=== PATIENT | male | born 1945 | race Caucasian/White ===

== ENCOUNTER 2021-06-13 08:23 | Emergency (ER) | payer MEDICARE, MEDICAID, SELFPAY ==
[2021-06-13 08:25] VITALS: BP 141/71; PULSE 64; RESP 22; TEMP 36.8; O2SAT 98
[2021-06-13 08:30] VITALS: PULSE 66
--- NOTE | 2021-06-13 08:35 | ED.WEAKNESS ---
HPI - Weakness General Chief complaint: Weakness Stated complaint: Ambulance Source: patient, EMS and RN notes reviewed Mode of arrival: EMS Limitations: no limitations History of Present Illness Complaint: generalized weakness Onset (ago): day(s) (2-3) Duration: constant Location: generalized Migration: none Severity: moderate Relieving factors: none Exacerbating factors: movement Associated symptoms: denies other symptoms Related Data Home Medications Medication Instructions Recorded Confirmed amlodipine 5 mg PO DAILY 06/13/21 06/13/21 aspirin 81 mg PO DAILY 06/13/21 06/13/21 docusate sodium 100 mg PO DAILY 06/13/21 06/13/21 furosemide 40 mg PO DAILY 06/13/21 06/13/21 gabapentin 600 mg PO TID 06/13/21 06/13/21 levothyroxine 50 mcg PO DAILY 06/13/21 06/13/21 lithium carbonate 300 mg PO BID 06/13/21 06/13/21 lorazepam 0.25 mg PO HS 06/13/21 06/13/21 metoprolol tartrate 25 mg PO DAILY 06/13/21 06/13/21 multivitamin [Daily Multivitamin] 1 tablet PO DAILY 06/13/21 06/13/21 nitroglycerin 0.4 mg SUBLINGUAL Q5-15M PRN 06/13/21 06/13/21 paliperidone palmitate [Invega 156 mg IM Q30D 06/13/21 06/13/21 Sustenna] polyethylene glycol 3350 17 g PO DAILY 06/13/21 06/13/21 tamsulosin 0.8 mg PO HS 06/13/21 06/13/21 Allergies Allergy/AdvReac Type Severity Reaction Status Date / Time No Known Allergies Allergy Verified 06/13/21 08:49 Review of Systems Review of Systems: All systems reviewed & are unremarkable except as noted in HPI and below Constitutional: Constitutional: Denies chills and Denies fever(s) Cardiovascular: Cardiovascular: Denies chest pain Respiratory: Respiratory: Denies dyspnea Gastrointestinal: Gastrointestinal: Denies diarrhea, Denies nausea and Denies vomiting Genitourinary: Genitourinary: Denies oliguria, Denies dysuria and Reports urinary frequency PMFSH Past Medical History Medical History (Updated 06/13/21 @ 11:11 by Jb Reyna MD) Bipolar 1 disorder PTSD (post-traumatic stress disorder) Surgical History Surgical History (Updated 06/13/21 @ 08:42 by Jb Reyna MD) Hx of cholecystectomy Social History Social History (Updated 06/13/21 @ 08:43 by Jb Reyna MD) Smoking status: Former smoker Tobacco type: cigarettes Additional smoking assessment comments: smoked times 40 years Alcohol intake: former Substance use: never Exam Const: General: healthy appearing and no acute distress Nutritional Appearance: well nourished and thin Orientation/consciousness: patient oriented x3 HENMT: Head: normal to inspection Ears: external ears normal Face and sinus: normal facial exam Mouth: Yes moist mucous membranes Eyes: Conjunctivae: conjunctivae normal Pupils: Equal, round and reactive pupils present EOM: EOMs intact bilaterally Neck: Neck: normal visual inspection Resp: Effort & Inspection: normal respiratory effort Auscultation: clear to auscultation bilaterally Cardio: Rate: regular rate Rhythm: regular rhythm GI: GI Palp: Yes Soft to palpation and No Tenderness to palpation present (GI) Auscultation: normal bowel sounds Back/Spine/Pelvis: Cervical Spine: cervical ROM normal Thoracic/Lumbar Spine: thoraco-lumbar ROM normal Skin: General skin exam: normal color Rashes: no rashes Neuro: General: patient oriented x3, moves all extremities, no meningeal signs and no focal motor deficits Speech: normal speech Extrem: General: normal to inspection and no clubbing, cyanosis or edema Psych: Appearance: grossly normal and well kempt Mental Status: mental status grossly normal Affect: Blunted affect present Attitude: cooperative Thought content: Yes Normal thought content present Course Vital Signs Vital signs: Vital Signs Temperature 36.8 C 06/13/21 08:25 Pulse Rate 64 06/13/21 08:25 Respiratory Rate 22 H 06/13/21 08:25 Blood Pressure 141/71 H 06/13/21 08:25 Pulse Oximetry 98 06/13/21 08:25 Temperature 36.8 C 05/21
[2021-06-13 08:56] LABS: Basophils Absolute Auto 0.07 K/mm3 (0.00-0.10); Eosinophils Absolute Auto 0.16 K/mm3 (0.02-0.50); Eosinophils Percent Auto 2.3 % (1.0-6.0); Hematocrit 40.1 % (37.0-46.0); Hemoglobin 13.3 g/dL (12.4-15.3); Immature Granulocyte Absolute 0.03 K/mm3 (0.00-0.00); Immature Granulocyte Percent A 0.4 % (0.0-0.0); Lymphocytes Absolute Auto 1.86 K/mm3 (1.10-4.50); Lymphocytes Percent Auto 26.4 % (18.0-42.0); Mean Corpuscular HGB Conc 33.2 g/dL (32.0-36.0); Mean Corpuscular Hemoglobin 30.8 pg (27.0-31.0); Mean Corpuscular Volume 92.8 fL (78.0-102.0); Mean Platelet Volume 11.4 fl (8.7-11.0); Monocytes Absolute Auto 0.82 K/mm3 (0.10-0.90); Monocytes Percent Auto 11.6 % (2.0-11.0); Neutrophils Absolute Auto 4.1 K/mm3 (1.7-7.2); Neutrophils Percent Auto 58.3 % (50.0-70.0); Platelet Count Result 178 K/mm3 (150-420); Red Blood Count 4.32 M/mm3 (4.70-6.10); Red Cell Distribution Width 12.4 % (11.6-14.4); White Blood Count 7.1 K/mm3 (4.8-10.8)
[2021-06-13 09:14] LABS: Alanine Aminotransferase 33 U/L (16-63); Alkaline Phosphatase 119 U/L (46-116); Anion Gap 9 mmol/L (8-16); Aspartate Amino Transferase 16 U/L (15-37); Bilirubin,Total 0.7 mg/dL (0.00-1.00); Blood Urea Nitrogen 19 mg/dL (7-18); CRP 0.6 mg/dL (0.0-0.9); Carbon Dioxide 29 mmol/L (21-32); Chloride 103 mmol/L (98-108); Estimated CRCL calculation 49 ml/min; Estimated Glomerular Filt Rate 49; Glucose 297 mg/dL (70-99); Osmolality Calculated 305 mOsm/kg (285-295); Potassium 3.8 mmol/L (3.5-5.1); Sodium 141 mmol/L (136-145); Total Protein 7.3 g/dL (6.4-8.2)
[2021-06-13] MEDS: INSULIN HUMAN REGULAR (*BKC) 100 UNITS/ML 15 UNITS SUB-Q (09:29)
[2021-06-13 09:48] LABS: Hemoglobin A1C 7.8 % (<5.7)
[2021-06-13 09:50] LABS: Magnesium 2.2 mg/dL (1.8-2.4)
[2021-06-13 10:18] LABS: Add Urine Microscopic? NO; Appearance Urine Clear (Clear); Bilirubin Urine Negative (Negative); Blood Urine Negative (Negative); Color Urine Light Yellow (Yellow); Glucose Urine UA Negative (Negative); Ketones Urine Negative (Negative); Leukocyte Esterase Ur Negative LEU/UL (Negative); Nitrate Urine Negative (Negative); Protein Urine Negative (Negative); pH Urine 7.5 (5.0-8.0)
[2021-06-13 10:22] LABS: Glucose Point of Care 340 mg/dl (65-105)
[2021-06-13 11:07] LABS: Glucose Point of Care 256 mg/dl (65-105)
[2021-06-13 11:54] VITALS: BP 138/70; PULSE 74; RESP 20; O2SAT 96
== END 2021-06-13 11:55 | disposition home or self-care (01) ==
PROVIDERS: Emergency Provider Emergency Medicine
DX: E11.9 Type 2 diabetes mellitus without complications (principal); Z87.891 Personal history of nicotine dependence
CPT/HCPCS: 36415; 80053; 81003; 82948; 83036; 83735; 85025; 86140; 99283; J1815

== ENCOUNTER 2021-06-30 10:35 | Outpatient (CLI) | payer MEDICARE, SELFPAY ==
[2021-07-03 05:11] LABS: Lithium 0.99 mmol/L (0.60-1.20)
== END 2021-06-30 10:36 | disposition home or self-care (01) ==
LOC: CHSLAB 10:49
DX: Z79.899 Other long term (current) drug therapy (principal)
CPT/HCPCS: 36415; 80178

== ENCOUNTER 2022-06-09 09:13 | Emergency (ER) | payer MEDICARE, SELFPAY ==
--- NOTE | ~2022-06-09 | CT_ITS ---
EXAMINATION: CT pelvis wo con DATE: 06/09/2022 10:13 INDICATION: Lateral right hip pain. No trauma. TECHNIQUE: Computed tomography (CT) of the pelvis was performed without intravenous contrast. Automat ed exposure control and iterative reconstruction technique were employed. Exam dose: 286.48 mGy-cm t otal exam DLP. COMPARISON: None FINDINGS: Prominent anterior spurring at L3-4 but relatively preserved L3-4 and L4-5 disc spaces. Mod erately severe degenerative disc disease at L5-S1. Degenerative change at the apophyseal joints in th e lower lumbar and lumbosacral area. No pelvic fracture or bone destruction. No fracture or dislocation, avascular necrosis or bone destru ction of either hip is evident. There is mild bilateral hip osteoarthritis. No suspicious osteolytic or osteoblastic lesions. Mild prostate enlargement. The urinary bladder is unremarkable. Mild colonic diverticulosis; no CT ev idence of diverticulitis. Atherosclerotic calcification of the abdominal aorta and iliac arteries and femoral arteries. Small fat-containing right inguinal hernia. IMPRESSION: No right hip fracture, dislocation or avascular necrosis or bone destruction is detected Moderately severe degenerative disc disease at L5-S1 Reviewed, dictated and finalized at [facility]. Reviewed, dictated and finalized at [facility]. IMPRESSION: No right hip fracture, dislocation or avascular necrosis or bone d estruction is detected Moderately severe degenerative disc disease at L5-S1
[2022-06-09 09:20] VITALS: BP 128/64; PULSE 71; RESP 16; TEMP 36.2; O2SAT 99
[2022-06-09] MEDS: ACETAMINOPHEN 325 MG TABLET 650 MG PO (09:58)
--- NOTE | 2022-06-09 10:33 | ED.LOWEXIN ---
HPI - Extremity Injury (Lower) General Chief Complaint: Extremity Injury, Lower Stated Complaint: Right Hip Pain Time Seen by Provider: 06/09/22 09:17 Source: patient and RN notes reviewed Mode of arrival: ambulatory Limitations: no limitations History of Present Illness MD complaint: hip injury (right hip pain x 3 days.) Type of Injury: other (none) Place: home Severity: mild Severity scale (1-10): 3 Relieving factors: nothing Exacerbating factors: nothing Other symptoms: none Treatments prior to arrival: other (none) Related Data Home Medications Medication Instructions Recorded Confirmed amlodipine 10 mg tablet 5 mg PO DAILY 06/13/21 06/09/22 aspirin 81 mg chewable tablet 81 mg PO DAILY 06/13/21 06/09/22 docusate sodium 100 mg capsule 100 mg PO DAILY 06/13/21 06/09/22 furosemide 40 mg tablet 40 mg PO DAILY 06/13/21 06/09/22 gabapentin 300 mg tablet 600 mg PO TID 06/13/21 06/09/22 levothyroxine 50 mcg tablet 50 mcg PO DAILY 06/13/21 06/09/22 lithium carbonate 300 mg capsule 300 mg PO BID 06/13/21 06/09/22 lorazepam 0.5 mg tablet 0.25 mg PO HS 06/13/21 06/09/22 metoprolol tartrate 25 mg tablet 25 mg PO DAILY 06/13/21 06/09/22 multivitamin 1 tablet PO DAILY 06/13/21 06/09/22 tamsulosin 0.4 mg capsule 0.8 mg PO HS 06/13/21 06/09/22 atorvastatin 80 mg tablet 80 mg PO HS 06/09/22 06/09/22 losartan 50 mg tablet 50 mg PO DAILY 06/09/22 06/09/22 paliperidone palmitate 156 mg/mL 156 mg IM Q30D 06/09/22 06/09/22 intramuscular syringe (Invega Sustenna) Allergies Allergy/AdvReac Type Severity Reaction Status Date / Time No Known Allergies Allergy Verified 06/09/22 09:34 Review of Systems Review of Systems: All systems reviewed & are unremarkable except as noted in HPI and below Constitutional: Constitutional: Reports no additional constitutional complaints Eyes: Eyes: Reports no additional eye complaints ENT: Reports system reviewed and no additional complaints, except as documented Cardiovascular: Cardiovascular: Reports no additional cardiovascular complaints Respiratory: Respiratory: Reports no additional respiratory complaints Gastrointestinal: Gastrointestinal: Reports no additional gastrointestinal complaints Musculoskeletal: Musculoskeletal: Reports arthralgias Integumentary/Breasts: Skin/Breast: Reports system reviewed and no additional complaints, except as docu Neurologic: Reports system reviewed and no additional complaints, except as documented Psychiatric: Psychiatric: Reports no additional psychiatric complaints Endocrine: Endocrine: Reports no additional endocrine complaints Hematologic/Lymphatic: Hematologic/Lymphatic: Reports no additional hematologic/lymphatic complaints Allergic/Immunologic: Allergic/Immunologic: Reports no additional allergic/immunologic complaints PMFSH Past Medical History Medical History Bipolar 1 disorder PTSD (post-traumatic stress disorder) Right hip pain Surgical History Surgical History Hx of cholecystectomy Social History Social History Smoking status: Former smoker Tobacco type: cigarettes Additional smoking assessment comments: smoked times 40 years Alcohol intake: former Substance use: never Exam Const: General: healthy appearing and no acute distress Nutritional Appearance: well nourished Orientation/consciousness: patient oriented x3 Limitations: no limitations HENMT: Head: normal to inspection Ears: external ears normal, TM's normal bilaterally and EAC's normal General nose exam: Normal external nose present and Normal nares present Face and sinus: normal facial exam and sinuses nontender Mouth: Yes Normal oral and palatal mucosa present and Yes moist mucous membranes Teeth and gingiva: dentition normal Throat: posterior oropharynx normal Eyes: Conjunctivae
[2022-06-09 11:00] VITALS: BP 113/63; PULSE 71; RESP 14; TEMP 36.6; O2SAT 98
== END 2022-06-09 11:04 | disposition home or self-care (01) ==
PROVIDERS: Emergency Provider Emergency Medicine
DX: M25.551 Pain in right hip (principal); M71.9 Bursopathy, unspecified; Z87.891 Personal history of nicotine dependence
CPT/HCPCS: 72192; 99284; A9270

== ENCOUNTER 2022-06-22 07:07 | Observation (INO) | payer MEDICARE, SELFPAY ==
[2022-06-22] VITALS (20 sets, daily range): BP systolic 86–138; BP diastolic 54–72; PULSE 59–78; RESP 14–20; TEMP 36.1–36.8; O2SAT 96–100
--- NOTE | ~2022-06-22 | CT_ITS ---
EXAMINATION: CT brain wo con DATE: 06/22/2022 07:53 INDICATION: Headache. Head injury. TECHNIQUE: Computed tomography (CT) of the head was performed without intravenous contrast. The mA wa s adjusted according to patient size. Iterative reconstruction technique was employed. The dose-lengt h product was 605.33 mGy-cm. COMPARISON: None FINDINGS: There are scattered areas of low attenuation in the cerebral white matter, which is within normal limits for the patient's age. There is no intracranial hemorrhage, acute infarction, or abnorm al intracranial mass lesion. The ventricles are normal in size. The orbits are normal. There is mild mucosal thickening in the paranasal sinuses. The mastoid air cells are normal. IMPRESSION: 1. Moderate nonspecific cerebral white matter disease, which likely represents chronic small vessel i schemic disease. Reviewed, dictated and finalized at location [facility]. IMPRESSION: 1. Moderate nonspecific cerebral white matter disease, which likely represents chronic small vessel ischemic disease.
--- NOTE | ~2022-06-22 | XR_ITS ---
XR chest 1V portable DATE: 06/22/2022 07:54 INDICATION: Chest pain. Fall. TECHNIQUE: Portable AP chest on 06/22/2022 at 0801 hours COMPARISON: None FINDINGS: Probable old healed fracture at the posterolateral aspect of the left eighth rib. Osteoarthritis at the glenohumeral joints. Mild levoscoliosis and degenerative spurring of the thorac ic spine. Aortic calcification and unfolding. No hilar or mediastinal enlargement. Normal heart size. No pulmonary infiltrate or consolidation, pleural effusion or pulmonary vascular congestion or pneumo thorax is detected. IMPRESSION: No active cardiopulmonary disease Aortic atherosclerosis Reviewed, dictated and finalized at location [facility].
--- NOTE | ~2022-06-22 | CT_ITS ---
EXAMINATION: CT lumbar spine wo con DATE: 06/22/2022 07:54 INDICATION: Back pain. Fall. TECHNIQUE: Computed tomography (CT) of the lumbar spine was performed without intravenous contrast. A utomated exposure control and iterative reconstruction technique were employed. The dose-length produ ct was 1071.98 mGy-cm. COMPARISON: None FINDINGS: There is 4 degrees levocurvature of lumbar spine. Vertebral body heights are normal. There is mildly decreased disc height at L2-L3 and severely decreased disc height at L5-S1. The following d isc levels are specifically discussed: L1-L2: The disc is bulging. There is moderate right and mild left facet joint osteoarthritis. There i s mild bilateral neural foraminal stenosis. There is mild central canal stenosis. L2-L3: The disc is bulging. There is mild right and severe left facet joint osteoarthritis. There is mild bilateral neural foraminal stenosis. There is mild central canal stenosis. L3-L4: The disc is bulging. There is severe bilateral facet joint osteoarthritis. There is mild bilat eral neural foraminal stenosis. There is mild central canal stenosis. L4-L5: The disc is bulging. There is severe bilateral facet joint osteoarthritis. There is mild bilat eral neural foraminal stenosis. There is mild central canal stenosis. L5-S1: The disc is bulging. There is severe bilateral facet joint osteoarthritis. There is moderate b ilateral neural foraminal stenosis. There is mild central canal stenosis. IMPRESSION: 1. No fracture. 2. Severe lumbar spondylosis. Reviewed, dictated and finalized at location [facility].
--- NOTE | ~2022-06-22 | CT_ITS ---
EXAMINATION: CT pelvis wo con DATE: 06/22/2022 07:54 INDICATION: Back pain. Bilateral leg pain. Fall. TECHNIQUE: Computed tomography (CT) of the pelvis was performed without intravenous contrast. Automat ed exposure control and iterative reconstruction technique were employed. The dose-length product was 311.53 mGy-cm. COMPARISON: None FINDINGS: There is a right inguinal hernia containing fat. Bone alignment is normal. No fracture. The re is severe lumbar spondylosis. There is moderate osteoarthritis of the hips. IMPRESSION: 1. No fracture. 2. Moderate osteoarthritis of the hips. Reviewed, dictated and finalized at location [facility].
--- NOTE | ~2022-06-22 | CT_ITS ---
EXAMINATION: CT cervical spine wo con DATE: 06/22/2022 08:39 INDICATION: Head injury. TECHNIQUE: Computed tomography (CT) of the cervical spine was performed without intravenous contrast. Automated exposure control and iterative reconstruction technique were employed. The dose-length pro duct was 221.70 mGy-cm. COMPARISON: None FINDINGS: There is 4 degrees levocurvature of cervical spine. There is kyphosis of cervical spine. Ve rtebral body heights are normal. There is mildly decreased disc height from C3-C4 through C5-C6 and s everely decreased disc height at C6-C7. The following disc levels are specifically discussed: C2-C3: There is ankylosis of the uncovertebral joints with mild hypertrophy on the left. There is ank ylosis of the facet joints with mild hypertrophy on the left. There is mild left neural foraminal daniel nosis. There is no central canal stenosis. C3-C4: There is severe bilateral uncovertebral joint osteoarthritis. There is severe bilateral facet joint osteoarthritis. There is mild bilateral neural foraminal stenosis. There is mild central canal stenosis. C4-C5: There is severe right and moderate left uncovertebral joint osteoarthritis. There is severe bi lateral facet joint osteoarthritis. There is moderate right and mild left neural foraminal stenosis. There is mild central canal stenosis. C5-C6: There is moderate right and severe left uncovertebral joint osteoarthritis. There is severe ri ght and moderate left facet joint osteoarthritis. There is mild bilateral neural foraminal stenosis. There is mild central canal stenosis. C6-C7: There is severe bilateral uncovertebral joint osteoarthritis. There is severe bilateral facet joint osteoarthritis. There is mild bilateral neural foraminal stenosis. There is mild central canal stenosis. C7-T1: There is no uncovertebral joint osteoarthritis. There is severe bilateral facet joint osteoart hritis. There is mild bilateral neural foraminal stenosis. There is no central canal stenosis. IMPRESSION: 1. No fracture. 2. Severe cervical spondylosis. Reviewed, dictated and finalized at location A.
--- NOTE | 2022-06-22 07:27 | ECG_ITS ---
Measurements Intervals [place] Rate: 61 P: 55 IA: 191 QRS: -3 QRSD: 103 T: 46 QT: 416 QTc: 421 Interpretive Statements SINUS RHYTHM NONSPECIFIC T-WAVE ABNORMALITY BORDERLINE ECG NO PREVIOUS ECG AVAILABLE FOR COMPARISON Electronically Signed On 06-22-2022 12:14:55 CDT by Natanael Nj M.D.
[2022-06-22] MEDS: ACETAMINOPHEN 325 MG TABLET 650 MG PO (07:37)
--- NOTE | 2022-06-22 07:48 | PC.NURSE ---
PT IS IN RADIOLOGY
[2022-06-22] MEDS: SODIUM CHLORIDE 0.9% IV 500 ML 999 ML IV CONT (08:03)
--- NOTE | 2022-06-22 08:06 | ED.FALL ---
HPI - Fall General Chief Complaint: Fall Stated Complaint: AMBULANCE Time Seen by Provider: 06/22/22 07:11 Source: patient, EMS and RN notes reviewed Mode of arrival: EMS Limitations: no limitations History of Present Illness MD complaint: fall (pt was onfloor x 2 hrs. denied acute chest pain, LOC or SOB. EDOUARD now after hitting head) Onset (ago): hour(s) (4) Fall from: standing (no acute dizziness, increasing leg weakness) Fall witnessed: no Place fall occurred: home Loss of consciousness: none Prolonged down time: yes Symptoms prior to fall: none Context: tripped/slipped Location of injury: head and back Severity: mild Severity scale (1-10): 3 Quality: dull and aching Associated symptoms (after fall): headache and weakness Related Data Home Medications Medication Instructions Recorded Confirmed amlodipine 10 mg tablet 5 mg PO DAILY 06/13/21 06/22/22 aspirin 81 mg chewable tablet 81 mg PO DAILY 06/13/21 06/22/22 docusate sodium 100 mg capsule 100 mg PO DAILY 06/13/21 06/22/22 furosemide 40 mg tablet 40 mg PO DAILY 06/13/21 06/22/22 gabapentin 300 mg tablet 600 mg PO TID 06/13/21 06/22/22 levothyroxine 50 mcg tablet 50 mcg PO DAILY 06/13/21 06/22/22 lithium carbonate 300 mg capsule 300 mg PO BID 06/13/21 06/22/22 lorazepam 0.5 mg tablet 0.25 mg PO HS 06/13/21 06/22/22 metoprolol tartrate 25 mg tablet 25 mg PO DAILY 06/13/21 06/22/22 multivitamin 1 tablet PO DAILY 06/13/21 06/22/22 tamsulosin 0.4 mg capsule 0.8 mg PO HS 06/13/21 06/22/22 atorvastatin 80 mg tablet 80 mg PO HS 06/09/22 06/22/22 losartan 50 mg tablet 50 mg PO DAILY 06/09/22 06/22/22 paliperidone palmitate 156 mg/mL 156 mg IM Q30D 06/09/22 06/22/22 intramuscular syringe (Invega Sustenna) Allergies Allergy/AdvReac Type Severity Reaction Status Date / Time No Known Allergies Allergy Verified 06/22/22 07:18 Review of Systems Review of Systems: All systems reviewed & are unremarkable except as noted in HPI and below Constitutional: Constitutional: Reports no additional constitutional complaints Eyes: Eyes: Reports no additional eye complaints ENT: Reports system reviewed and no additional complaints, except as documented Cardiovascular: Cardiovascular: Reports no additional cardiovascular complaints Respiratory: Respiratory: Reports no additional respiratory complaints Gastrointestinal: Gastrointestinal: Reports no additional gastrointestinal complaints Musculoskeletal: Musculoskeletal: Reports back pain Integumentary/Breasts: Skin/Breast: Reports system reviewed and no additional complaints, except as docu Neurologic: Reports headache(s) and Reports weakness Psychiatric: Psychiatric: Reports no additional psychiatric complaints Endocrine: Endocrine: Reports no additional endocrine complaints Hematologic/Lymphatic: Hematologic/Lymphatic: Reports no additional hematologic/lymphatic complaints Allergic/Immunologic: Allergic/Immunologic: Reports no additional allergic/immunologic complaints PMFSH Past Medical History Medical History Bipolar 1 disorder Fall PTSD (post-traumatic stress disorder) Right hip pain Surgical History Surgical History Hx of cholecystectomy Social History Social History Smoking status: Former smoker Tobacco type: cigarettes Additional smoking assessment comments: smoked times 40 years Alcohol intake: former Substance use: never Exam Const: General: no acute distress and alert Nutritional Appearance: well nourished Orientation/consciousness: patient oriented x3 Limitations: no limitations HENMT: Head: normal to inspection Ears: external ears normal, TM's normal bilaterally and EAC's normal General nose exam: Normal external nose present and Normal nares present Face and sinus: normal facial exam and sinuses nontender [place]
[2022-06-22 08:15] LABS: Basophils Absolute Auto 0.06 K/mm3 (0.00-0.10); Basophils Percent Auto 0.5 % (0.0-1.0); Eosinophils Percent Auto 1.8 % (1.0-6.0); Hematocrit 31.1 % (37.0-46.0); Hemoglobin 9.8 g/dL (12.4-15.3); Immature Granulocyte Absolute 0.05 K/mm3 (0.00-0.00); Immature Granulocyte Percent A 0.4 % (0.0-0.0); Lymphocytes Absolute Auto 1.28 K/mm3 (1.10-4.50); Lymphocytes Percent Auto 11.2 % (18.0-42.0); Mean Corpuscular HGB Conc 31.5 g/dL (32.0-36.0); Mean Platelet Volume 11.2 fl (8.7-11.0); Monocytes Absolute Auto 1.28 K/mm3 (0.10-0.90); Monocytes Percent Auto 11.2 % (2.0-11.0); Neutrophils Absolute Auto 8.5 K/mm3 (1.7-7.2); Neutrophils Percent Auto 74.9 % (50.0-70.0); Platelet Count Result 299 K/mm3 (150-420); Red Blood Count 3.38 M/mm3 (4.70-6.10); Red Cell Distribution Width 12.8 % (11.6-14.4); White Blood Count 11.4 K/mm3 (4.8-10.8)
[2022-06-22 08:32] LABS: Alanine Aminotransferase 60 U/L (16-63); Albumin Level 2.9 g/dL (3.4-5.0); Alkaline Phosphatase 117 U/L (46-116); Anion Gap 10 mmol/L (8-16); Aspartate Amino Transferase 29 U/L (15-37); Bilirubin,Total 0.7 mg/dL (0.00-1.00); Blood Urea Nitrogen 18 mg/dL (7-18); Calcium 9.3 mg/dL (8.5-10.1); Carbon Dioxide 25 mmol/L (21-32); Chloride 104 mmol/L (98-108); Estimated CRCL calculation 60 ml/min; Estimated Glomerular Filt Rate > 60; Glucose 143 mg/dL (70-99); Lactic Acid Reflex 1.3 mmol/L (0.4-2.0); Osmolality Calculated 291 mOsm/kg (285-295); Potassium 3.5 mmol/L (3.5-5.1); Sodium 139 mmol/L (136-145); Total Protein 7.2 g/dL (6.4-8.2); Troponin I 12.6 ng/L (0.00-60.4)
--- NOTE | 2022-06-22 08:51 | PC.NURSE ---
PT HAS RETURNED FROM RADIOLOGY AGAIN, IVF COMPLETED. ORTHOSTATICS ATTEMPTED, HOWEVER SIGNIFICANT DROP IN BP WHEN SITTING UP, ERP NOTIFIED. PT DENIES ANY NEEDS OR COMPLAINTS. LIGHTS OFF, WARM BLANKETS PROVIDED. WILL CONTINUE TO MONITOR.
[2022-06-22] MEDS: SODIUM CHLORIDE 0.9% IV 1,000 ML 125 ML IV CONT (09:39)
--- NOTE | 2022-06-22 09:52 | PC.NURSE ---
PT IS AWAITING RETURN CALL FROM HOSPITALIST AT THIS TIME. PT IS REQUESTING SOMETHING TO EAT, TRAY ORDERED AT THIS TIME. IVF INFUSING ORDERED WITHOUT DIFFICULTY. PT PLACED INTO GOWN, BELONGINGS LIST COMPLETED. PT IS AWARE OF PLAN OF CARE. WILL CONTINUE TO MONITOR. ERP HAS PLACED A 2ND CALL TO HOSPITALIST AT THIS TIME.
--- NOTE | 2022-06-22 10:38 | PC.NURSE ---
BREAKFAST TRAY PROVIDED, PT IS EATING. PT IS AWAITING ADMISSION TO [facility]. PT DENIES ANY NEEDS OR COMPLAINTS. WILL CONTINUE TO MONITOR.
--- NOTE | 2022-06-22 10:52 | PC.NURSE ---
DELAY IN PT TO FLOOR DUE TO REGISTRATION, REQUESTED ADMIT AT 1016.
[2022-06-22 11:46] LABS: Glucose Point of Care 190 mg/dl (65-105)
[2022-06-22 11:59] LABS: Add Urine Microscopic? NO; Appearance Urine Clear (Clear); Bilirubin Urine Negative (Negative); Blood Urine Negative (Negative); Color Urine Light Yellow (Yellow); Glucose Urine UA Negative (Negative); Ketones Urine Negative (Negative); Leukocyte Esterase Ur Negative (Negative); Nitrate Urine Negative (Negative); Protein Urine Negative (Negative)
--- NOTE | 2022-06-22 12:54 | ADMGEN ---
This patient, Joshua Alvarez, was admitted to 2nd Floor Room 208-1 as obs for falls, dehydration, and ortho static bp. Patient/family oriented to hospital policies and general routines including ID bracelet, bed and alarms, visiting hours, pain management, procedures, bathroom and other care routines, personal items, smoking policy, room service/diet, and visiting hours. Information on how to activate the Rapid Response Team has been discussed. Patient/Family are encouraged to report perceived risks to care and to ask questions if they do not understand what they are told or what they should do.
[2022-06-22] MEDS: GABAPENTIN 300 MG CAPSULE PO ×2 (13:14→16:53)
[2022-06-22] MEDS: traMADol HCL (*CRX) 50 MG TABLET PO (14:43)
[2022-06-22] MEDS: LITHIUM CARBONATE 300 MG CAPSULE PO (16:52)
[2022-06-22] MEDS: metFORMIN HCL 500 MG TABLET PO (16:53)
[2022-06-22 16:57] LABS: Glucose Point of Care 124 mg/dl (65-105)
[2022-06-22] MEDS: TAMSULOSIN HCL 0.4 MG CAPSULE 0.8 MG PO (20:33)
[2022-06-22] MEDS: ATORVASTATIN 40 MG TABLET 80 MG PO (20:33)
[2022-06-22] MEDS: LORazepam (*CRX) 0.5 MG TABLET 0.25 MG PO (20:33)
[2022-06-22 20:38] LABS: Glucose Point of Care 142 mg/dl (65-105)
[2022-06-23 04:00] VITALS: BP 132/72; PULSE 89; RESP 20; TEMP 37; O2SAT 97
[2022-06-23 05:37] LABS: Hemoglobin 9.5 g/dL (12.4-15.3); Mean Corpuscular HGB Conc 31.7 g/dL (32.0-36.0); Mean Corpuscular Hemoglobin 29.2 pg (27.0-31.0); Mean Corpuscular Volume 92.3 fL (78.0-102.0); Mean Platelet Volume 10.9 fl (8.7-11.0); Platelet Count Result 288 K/mm3 (150-420); Red Blood Count 3.25 M/mm3 (4.70-6.10); Red Cell Distribution Width 12.7 % (11.6-14.4); White Blood Count 10.9 K/mm3 (4.8-10.8)
[2022-06-23 05:47] LABS: Anion Gap 9 mmol/L (8-16); Blood Urea Nitrogen 17 mg/dL (7-18); Calcium 9.1 mg/dL (8.5-10.1); Carbon Dioxide 27 mmol/L (21-32); Chloride 107 mmol/L (98-108); Estimated CRCL calculation 57 ml/min; Estimated Glomerular Filt Rate > 60; Glucose 159 mg/dL (70-99); Osmolality Calculated 300 mOsm/kg (285-295); Potassium 3.8 mmol/L (3.5-5.1); Sodium 143 mmol/L (136-145)
[2022-06-23] MEDS: LEVOTHYROXINE SODIUM 50 MCG TABLET PO (06:48)
[2022-06-23] MEDS: LITHIUM CARBONATE 300 MG CAPSULE PO (06:48)
--- NOTE | 2022-06-23 07:16 | PM.SD2 ---
Same Day Admit/Disch: HPI History of Present Illness Chief complaint: GENERALIZED WEAKNESS Narrative: Joshua Alvarez is a 76 year old male presented to the emergency room with a fall (pt was onfloor x 2 hrs.? denied acute chest pain, LOC or SOB. ? EDOUARD now after hitting head)Onset (ago): hour(s) (4). Patient needed 24 hour observation and Pt evaluation PMFSH Past Medical History Medical History Bipolar 1 disorder Fall PTSD (post-traumatic stress disorder) Right hip pain Surgical History Surgical History Hx of cholecystectomy Social History Social History Smoking status: Never smoker Tobacco type: cigarettes Additional smoking assessment comments: smoked times 40 years Alcohol intake: never Substance use: never Spiritual care concerns: No Same Day Admit/Disch: Med Pre-admit Medications Home Medications Medication Instructions Recorded Confirmed Type amlodipine 10 mg tablet 5 mg PO DAILY 06/13/21 06/22/22 History aspirin 81 mg chewable tablet 81 mg PO DAILY 06/13/21 06/22/22 History docusate sodium 100 mg capsule 100 mg PO DAILY 06/13/21 06/22/22 History furosemide 40 mg tablet 40 mg PO DAILY 06/13/21 06/22/22 History gabapentin 300 mg tablet 600 mg PO TID 06/13/21 06/22/22 History levothyroxine 50 mcg tablet 50 mcg PO DAILY 06/13/21 06/22/22 History lithium carbonate 300 mg capsule 300 mg PO BID 06/13/21 06/22/22 History lorazepam 0.5 mg tablet 0.25 mg PO HS 06/13/21 06/22/22 History metformin 500 mg tablet 500 mg PO BID #60 tabs 06/13/21 06/22/22 Rx metoprolol tartrate 25 mg tablet 25 mg PO BID 06/13/21 06/22/22 History multivitamin 1 tablet PO DAILY 06/13/21 06/22/22 History tamsulosin 0.4 mg capsule 0.8 mg PO HS 06/13/21 06/22/22 History acetaminophen 325 mg capsule 650 mg PO Q8H PRN pain #20 caps 06/09/22 06/22/22 Rx (Tylenol) atorvastatin 80 mg tablet 80 mg PO HS 06/09/22 06/22/22 History losartan 50 mg tablet 50 mg PO DAILY 06/09/22 06/22/22 History paliperidone palmitate 156 mg/mL 156 mg IM Q30D 06/09/22 06/22/22 History intramuscular syringe (Invega Sustenna) tramadol 50 mg tablet 50 mg PO BID PRN pain #4 tabs 06/09/22 06/22/22 Rx Exam Narrative: GENERAL:Well-appearing, well-nourished, and in no acute distress. HEAD:Normocephalic, atraumatic. EYES: PERRLA and EOMI. ENT: Nares clear, no rhinorrhea or epistaxis. Mucous membranes moist. NECK: Supple. CHEST: Clear to auscultation. No respiratory distress. HEART: Regular rate and rhythm.. Normal peripheral pulses. ABDOMEN: Soft, nontender, nondistended, normal active bowel sounds. EXTREMITIES: Normal range of motion. trace edema.Tremors noted when asked to lift his hands SKIN: Warm, dry, no rash. NEURO: No focal deficits. Alert and oriented x2-. DS: Data Data Completed and Pending Labs on day of discharge: Labs from last 24 hours 06/23/22 06/23/22 06/22/22 05:32 05:32 20:32 WBC 10.9 H RBC 3.25 L Hgb 9.5 L Hct 30.0 L MCV 92.3 MCH 29.2 MCHC 31.7 L RDW 12.7 Plt Count 288 MPV 10.9 Immature Gran % (Auto) Neut % (Auto) Lymph % (Auto) [place] % (Auto) Eos % (Auto) Baso % (Auto) Lymph # (Auto) [place] # (Auto) Eos # (Auto) Baso # (Auto) Abs Immat Gran (auto) Absolute Neuts (auto) Absolute Nucleated RBC Nucleated RBC % Sodium 143 Potassium 3.8 Chloride 107 Carbon Dioxide 27 Anion Gap 9 BUN 17 Creatinine 1.07 Estim Creat Clear Calc 57 Estimated GFR > 60 Glucose 159 H POC Capillary Glucose 142 H Calculated Osmolality 300 H Lactic Acid Calcium 9.1 Total Bilirubin AST ALT Alkaline Phosphatase Troponin I Total Protein Albumin Urine Color Urine Appearance Urine pH Ur Specific [place] Urine Protein
[2022-06-23 07:38] VITALS: BP 135/83; PULSE 91; RESP 14; TEMP 37; O2SAT 97
[2022-06-23 07:52] LABS: Glucose Point of Care 166 mg/dl (65-105)
[2022-06-23] MEDS: metFORMIN HCL 500 MG TABLET PO (08:38)
[2022-06-23] MEDS: GABAPENTIN 300 MG CAPSULE PO (08:38)
[2022-06-23] MEDS: DOCUSATE SODIUM 100 MG CAPSULE PO (08:38)
[2022-06-23] MEDS: amLODIPine BESYLATE 5 MG TABLET PO (08:38)
[2022-06-23] MEDS: FUROSEMIDE 40 MG TABLET PO (08:38)
[2022-06-23] MEDS: LOSARTAN POTASSIUM 50 MG TABLET PO (08:38)
[2022-06-23] MEDS: ASPIRIN 81 MG ENTERIC TABLET PO (08:39)
[2022-06-23] MEDS: MULTIVITAMINS THERAPEUTIC TAB (*BKC) 1 TABLET PO (08:42)
[2022-06-23 11:35] LABS: Glucose Point of Care 178 mg/dl (65-105)
[2022-06-23 12:00] VITALS: BP 140/70; PULSE 91; RESP 16; TEMP 36.4; O2SAT 97
--- NOTE | 2022-06-23 13:35 | PC.NURSE ---
Pt discharged back to [facility]. Report given to February. No medication changes were made. Wheeled walker sent with pt. Pt was instructed on the safe use of the walker. Pt instructed that his medications were the same. VSS.
--- NOTE | 2022-06-27 14:38 | PC.NURSE ---
[facility] care staff states they received and understood the discharge instructions.
== END 2022-06-23 13:15 | disposition home health service (06) ==
LOC: CHSED 10:46 → CHS2ND 10:52
PROVIDERS: Nurse Practitioner Family; Admitting Provider Internal Medicine; Emergency Provider Emergency Medicine; Visit Provider Internal Medicine
DX: E86.0 Dehydration (principal); R53.1 Weakness; F31.9 Bipolar disorder, unspecified; F43.10 Post-traumatic stress disorder, unspecified; Z87.891 Personal history of nicotine dependence; Z90.49 Acquired absence of other specified parts of digestive tract; W19.XXXA Unspecified fall, initial encounter
CPT/HCPCS: 36415; 70450; 71045; 72125; 72131; 72192; 80048; 80053; 81003; 82948; 83605; 84484; 85025; 85027; 93005; 96360; 96361; 97161; 99285; A9270; G0378; J7030; J7040

== ENCOUNTER 2023-04-06 07:38 | Emergency (ER) | payer MEDICARE, SELFPAY ==
[2023-04-06 07:38] VITALS: BP 145/70; PULSE 66; RESP 17; TEMP 36.6; O2SAT 100
--- NOTE | 2023-04-06 08:00 | ED.WOUNDLAC ---
HPI - Wound/Laceration General Stated Complaint: sore on buttock Time Seen by Provider: 04/06/23 07:39 Source: patient Mode of arrival: ambulatory Limitations: no limitations History of Present Illness HPI narrative: This 77-year-old gentleman that presents from self lawn with history of diabetes hyperlipidemia and hypertension presents with some tender warm lesion on his left buttock area that is nonfluctuant no drainage firm to touch tender it is warm. The patient otherwise no acute distress no fever chills no shortness of breath. Onset (ago): day(s) Location: other Place: other Related Data Home Medications Medication Instructions Recorded Confirmed amlodipine 10 mg tablet 5 mg PO DAILY 06/13/21 06/22/22 aspirin 81 mg chewable tablet 81 mg PO DAILY 06/13/21 06/22/22 docusate sodium 100 mg capsule 100 mg PO DAILY 06/13/21 06/22/22 furosemide 40 mg tablet 40 mg PO DAILY 06/13/21 06/22/22 gabapentin 300 mg tablet 600 mg PO TID 06/13/21 06/22/22 levothyroxine 50 mcg tablet 50 mcg PO DAILY 06/13/21 06/22/22 lithium carbonate 300 mg capsule 300 mg PO BID 06/13/21 06/22/22 lorazepam 0.5 mg tablet 0.25 mg PO HS 06/13/21 06/22/22 metoprolol tartrate 25 mg tablet 25 mg PO BID 06/13/21 06/22/22 multivitamin 1 tablet PO DAILY 06/13/21 06/22/22 tamsulosin 0.4 mg capsule 0.8 mg PO HS 06/13/21 06/22/22 atorvastatin 80 mg tablet 80 mg PO HS 06/09/22 06/22/22 losartan 50 mg tablet 50 mg PO DAILY 06/09/22 06/22/22 paliperidone palmitate 156 mg/mL 156 mg IM Q30D 06/09/22 06/22/22 intramuscular syringe (Invega Sustenna) Allergies Allergy/AdvReac Type Severity Reaction Status Date / Time No Known Allergies Allergy Verified 04/06/23 08:05 Review of Systems Review of Systems: All systems reviewed & are unremarkable except as noted in HPI and below PMFSH Past Medical History Medical History Bipolar 1 disorder Fall PTSD (post-traumatic stress disorder) Right hip pain Surgical History Surgical History Hx of cholecystectomy Social History Social History Smoking status: Never smoker Tobacco type: cigarettes Additional smoking assessment comments: smoked times 40 years Alcohol intake: never Substance use: never Spiritual care concerns: No Exam Const: General: healthy appearing Nutritional Appearance: well nourished Orientation/consciousness: patient oriented x3 Limitations: no limitations HENMT: Head: normal to inspection Eyes: Conjunctivae: conjunctivae normal Chest: Chest palpation & inspection: normal inspection of the chest Resp: Effort & Inspection: normal respiratory effort Cardio: Rate: regular rate GI: GI Palp: Yes Soft to palpation Urinary Catheter: Urinary Catheter: patent and draining Skin: Other: has a firm nonfluctuant area on his left buttock that nondraining it is tender and warm to touch Extrem: General: normal to inspection Psych: Mental Status: mental status grossly normal Course Course Emergency Course: tender area on the left buttock, put antibiotic ceftriaxone IM 1g, advised patient to use Tylenol or Motrin along with p.o. antibiotics and a warm compress. Critical Care Time Critical Care Time Critical Care Time: No Discharge Plan Discharge Clinical Impression: Cellulitis and abscess of buttock Patient Disposition: Home, Self-Care Condition: Stable Instructions: Antibiotic Form Additional Instructions: advised to take antibiotics as prescribed, use a warm compress to affected area, can take Tylenol or Motrin for pain. Follow up with primary if symptoms persist or worsen. Prescriptions: New naproxen 500 mg tablet 500 mg PO BID Qty: 14 0RF amoxicillin-pot clavulanate [Augmentin] 500-125 mg tablet 1 tablet PO TID Qty: 30 0RF No Action multivitamin Tablet
[2023-04-06] MEDS: cefTRIAXone 1 GM, LIDOCAINE HCL 1% LOCAL INJ 2.1 ML IM (08:18)
[2023-04-06 08:31] VITALS: BP 148/75; PULSE 66; RESP 18; TEMP 36.8; O2SAT 98
== END 2023-04-06 08:33 | disposition home or self-care (01) ==
PROVIDERS: Emergency Provider Emergency Medicine
DX: L03.317 Cellulitis of buttock (principal); L02.31 Cutaneous abscess of buttock; E11.9 Type 2 diabetes mellitus without complications; E78.5 Hyperlipidemia, unspecified; I10 Essential (primary) hypertension
CPT/HCPCS: 96372; 99283; J0696